=== PATIENT | female | born 1940 | race Caucasian/White ===

== ENCOUNTER → 2021-03-05 | Outpatient (CLI) | payer MEDICARE ==
[~2021-03-05] MED LIST: AMIODARONE HCL200 MG PO; ATORVASTATIN CA40 MG PO; COZAAR25 MG PO; ECOTRIN81 MG PO; ELIQUIS 5 MG TAB5 MG PO; GLUCOPHAGE1000 MG PO; GLUCOPHAGE500 MG PO; NORCO 5-325 TA1 EACH PO; PROPRANOLOL HCL80 M1 PO; VITAMIN C 500500 MG PO; VITAMIN D-40400 UNIT PO; ZETIA 10 MG TAB10 MG PO
== END ==
LOC: HEART 5 14:00
DX: I10 Essential (primary) hypertension (principal); I48.0 Paroxysmal atrial fibrillation; I08.3 Combined rheumatic disorders of mitral, aortic and tricuspid valves
CPT/HCPCS: 93306